=== PATIENT | male | born 1985 ===

== ENCOUNTER 2019-01-19 18:30 | Day surgery (SDC) | payer SELFPAY ==
[2019-01-19] MEDS ORDERED: Fluorescein Opthalmic Strip ONE (18:43)
[2019-01-19] MEDS ORDERED: Proparacaine 0.5% Opth 15 ML BOT ONE (18:43)
[2019-01-19] MEDS ORDERED: STERILE WATER TOP SCH (18:45)
[2019-01-19] MEDS ORDERED: AMPHOTERICIN B TOP SCH (18:45)
[2019-01-19] MEDS ORDERED: Vancomycin 100 MG, Sodium Chloride 0.9% 10 ML TOP SCH (18:45)
[2019-01-19] MEDS ORDERED: EPINEPHrine 0.3 MG in Ophthalmic Irrigation Solution 500 ML FS SCH (18:45)
[2019-01-19] MEDS ORDERED: [UNRECOGNIZED DRUG - OTHER] ONE (19:02)
[2019-01-19] MEDS ORDERED: Cyclopentolate 1% Opth Drop 2 ML BOT ONE (19:02)
[2019-01-19] MEDS ORDERED: Phenylephrine 2.5% Ophth Soln 5 ML BOT ONE (19:02)
[2019-01-19 19:04] LABS: #Eosinphils 0.2 thou/uL (0.0-0.7); #Lymphocytes 3.1 thou/uL (1.20-3.40); #Monocytes 1.3 thou/uL (0.11-0.59); #Neutrophils 14.7 thou/uL (1.40-6.50); %Basophils 0.1 % (0.0-1.0); %Lymphocytes 16.2 % (21.0-51.0); %Monocytes 6.6 % (0.0-10.0); %Neutrophils 76.1 % (42.0-75.0); Hemoglobin 17.4 g/dL (14.0-18.0); Mean Corpuscular HGB CONC 34.1 g/dL (32.0-36.0); Mean Corpuscular Hemoglobin 30.8 pg (27.0-31.0); Mean Corpuscular Volume 90.4 fL (78.0-98.0); Mean Platelet Volume 8.3 fL (7.4-10.4); Platelet Count 226 thou/uL (130-400); RBC Distribution Width 12.2 % (11.5-14.5); Red Blood Cell (RBC) Count 5.65 mill/uL (4.70-6.10); White Blood Cell (WBC) Count 19.3 thou/uL (4.8-10.8)
--- NOTE | 2019-01-19 19:12 | RAD ---
PORTABLE CHEST: 01/19/19 INDICATIONS: Preop. Lung johns are clear. Heart and mediastinum unremarkable. IMPRESSION: Unremarkable portable chest. POS: AGW
[2019-01-19 19:23] LABS: ALT (SGPT) 21 U/L (8-55); AST (SGOT) 23 U/L (5-34); Albumin 4.6 g/dL (3.5-5.0); Alkaline Phosphatase 52 U/L (40-150); Anion Gap 14 mmol/L (10-20); BUN (Urea Nitrogen) 10 mg/dL (8.9-20.6); Bilirubin, Total 0.7 mg/dL (0.2-1.2); Calc. Creatinine Clearance 0 mL/min (70-130); Calcium 9.7 mg/dL (7.8-10.44); Carbon Dioxide 26 mmol/L (22-29); Chloride 100 mmol/L (98-107); Estimated GFR-MDRD Greater than 90; Globulin 3.1 g/dL (2.4-3.5); Glucose 94 mg/dL (70-105); Potassium 3.6 mmol/L (3.5-5.1); Protein, Total 7.7 g/dL (6.0-8.3); Sodium 136 mmol/L (136-145)
[2019-01-19] MEDS ORDERED: Midazolam HCl 2 mg/2 ml Vial ONE ×2 (19:25→22:53)
[2019-01-19] MEDS ORDERED: Fentanyl 100 MCG/2 ML VIAL ONE ×3 (19:25→23:19)
[2019-01-19] MEDS ORDERED: Famotidine/PF 20 mg/2ml Vial ONE (19:25)
--- NOTE | 2019-01-20 04:55 | OP ---
DATE OF PROCEDURE: 01/19/2019 PREOPERATIVE DIAGNOSES: Endophthalmitis, intra-ocular foreign body, and cataract; right eye. POSTOPERATIVE DIAGNOSES: Endophthalmitis, intra-ocular foreign body, and cataract; right eye. PROCEDURES PERFORMED: Pars plana vitrectomy, lensectomy, and removal of intraocular foreign body; right eye. ANESTHESIA: General endotracheal anesthesia. DESCRIPTION OF PROCEDURE: The patient was identified in the preoperative holding area. Appropriate informed consent for the planned surgical procedure on the right eye had been obtained. The patient was transported to the operative suite. Appropriate cardiopulmonary monitoring was established. General endotracheal anesthesia was initiated. Local anesthesia was obtained using retrobulbar block. The patient was prepped and draped in usual sterile manner for ophthalmic surgery in the right eye. A lid speculum was placed in the right eye. Infectious material was dissected away from the surface of the lens and reposited into the periphery of the anterior chamber. Infusion line was placed inferotemporally and the tip was not visualized. Light pipe was inserted into the eye and noted to be present in the vitreous chamber. Infusion line was placed into the eye. Gas bubble was injected into the eye and noted to float behind the lens. There was no view through the cataractous lens, and a lensectomy was performed with the vitreous cutter. Dense vitreous opacification was noted. This was carefully dissected out of the eye. Posterior vitreous separation was carefully initiated and peeled into the periphery revealing dense fibrinous material on the retinal surface. Loose material was removed, and the fibrinous material was attempted to be dissected from the retinal surface. This was proved not to be possible. Intraocular foreign body was identified in the inferior vitreous base. This was grasped with a basket forceps and removed through a large sclerotomy, superior temporal. Sclerotomy was suture closed with 7-0 Vicryl suture. Conjunctiva was closed with 6-0 plain gut suture. Ednolaser was placed into nasal to the nerve in a retinal break that appeared to be the impact site. Intra-ocular antibiotics were injected. Complete air-fluid exchange was performed with 10 minutes being left for fluid to drain posteriorly. 28% sulfur hexafluoride gas was infused into the eye. Trocars were removed. The eye was noted to retain pressure well. Retrobulbar Kenalog and subconjunctival Ancef were placed. Antibiotic and atropine ointment were placed. The eye was patched and shielded. The patient was taken to the postop recovery unit in good condition, having suffered no immediate preop complications. The patient was instructed to keep patch and shield on. Avoid lifting or bending. Followup appointment with Dr. Ortiz. Job ID: [id number] ANITA
== END 2019-01-20 00:18 | disposition home or self-care (01) ==
LOC: ERS 18:30 → SDC/OP 19:25 → ERS 19:25 → SDC/OP 21:35
PROVIDERS: ATTEND Ophthalmology Retina Specialist
DX: H26.9 Unspecified cataract (principal); H44.001 Unspecified purulent endophthalmitis, right eye; S05.51XA Penetrating wound with foreign body of right eyeball, initial encounter
CPT/HCPCS: 67025; 71045; 80053; 85025; 93005; 96374; J0171; J0285; J0690; J0713; J2250; J3010; J3370; S0028